=== PATIENT | female | born 1965 | race Caucasian/White ===

== ENCOUNTER 2020-03-06 12:05 | Outpatient (CLI) | payer SELFPAY ==
--- NOTE | 2020-03-06 12:21 | XR_ITS ---
WS: [id number] THORACIC SPINE TECHNIQUE: AP and lateral views are performed. HISTORY: MIDDLE OF BACK PAIN COMPARISON: None available. Increase in thoracic kyphosis. Mild disc space narrowing and endplate osteophytes. No fractures. No d estructive bone process. Pedicles are intact. XR/XR thoracic spine 3V* [id number] IMPRESSION: Mild thoracic spondylosis.
--- NOTE | 2020-03-06 12:21 | XR_ITS ---
WS: [id number] LEFT RIBS, MULTIPLE VIEWS HISTORY: MIDDLE BACK PAIN COMPARISON: None available. Ribs: No rib fractures or bone destruction identified. Lungs and mediastinum: Benign granuloma LEFT lower lobe. No pneumonia. XR/XR ribs LT 2V* [id number] IMPRESSION: No LEFT rib fractures identified.
--- NOTE | 2020-03-06 12:21 | XR_ITS ---
WS: [id number] CERVICAL SPINE 3 VIEWS HISTORY: NECK PAIN COMPARISON: None available. Straightening of the normal cervical lordosis and slight reversal centered at C4. C4 retrolisthesis b y 2 mm. Moderate disc space narrowing from C3-4 to C6-7. No fracture. Lateral masses are aligned. The odontoid is intact. Soft tissues are normal. XR/XR cervical spine 3V* [id number] IMPRESSION: Moderate degenerative spondylitic changes throughout the cervical spine. Most s ignificant at C3-4 and C4-5.
== END 2020-03-06 12:06 | disposition home or self-care (01) ==
LOC: RADWPI 12:14
PROVIDERS: PCP Family Medicine; Visit Provider Chiropractor
DX: M54.2 Cervicalgia (principal); M54.89 Other dorsalgia; M47.814 Spondylosis without myelopathy or radiculopathy, thoracic region
CPT/HCPCS: 71100; 72040; 72072